=== PATIENT | female | born 1940 | race Two or more races ===

== ENCOUNTER 2021-12-27 11:54 | Emergency (ER) | payer OTHER ==
[~2021-12-27] VITALS: Ht 157.5 cm; Wt 73.5 kg
[~2021-12-27 11:54] MED LIST: ADVAIR 2501 DISK W/1 IH; AVELOX ABC PAC400 MG PO; DICLOFENAC SODI50 MG PO; FORADIL12 MCG IH; LASIX20 MG PO; MACROBID 100 M100 MG PO; METOCLOPRAMIDE10 MG PO; NEURONTIN250 MG/5 M PO; ORPH100T PO; PREDNISONE10 MG PO; PREVACID30 MG; PROVENTIL3 ML/2.5 M IH; SINGULAIR10 MG PO; ULTRACET PO; ZANTAC300 MG
== END 2021-12-27 18:19 | disposition home or self-care (01) ==
LOC: ER 11:54
DX: J44.1 Chronic obstructive pulmonary disease with (acute) exacerbation (principal); J45.909 Unspecified asthma, uncomplicated; Z91.041 Radiographic dye allergy status; Z20.822 Contact with and (suspected) exposure to COVID-19

== ENCOUNTER 2022-01-23 13:17 | Outpatient (CLI) | payer OTHER | END 2022-01-23 13:18 | disposition home or self-care (01) | LOC: LAB 13:17 | DX: J11.1 Influenza due to unidentified influenza virus with other respiratory manifestations (principal); A49.3 Mycoplasma infection, unspecified site; Z20.822 Contact with and (suspected) exposure to COVID-19; J44.9 Chronic obstructive pulmonary disease, unspecified ==

== ENCOUNTER 2022-01-28 08:47 | Emergency (ER) | payer OTHER ==
[~2022-01-28] VITALS: Ht 152.4 cm; Wt 53.5 kg
== END 2022-01-28 12:09 | disposition home or self-care (01) ==
LOC: ER 08:47
DX: T88.7XXA Unspecified adverse effect of drug or medicament, initial encounter (principal); K52.9 Noninfective gastroenteritis and colitis, unspecified; J44.9 Chronic obstructive pulmonary disease, unspecified; Z91.041 Radiographic dye allergy status

== ENCOUNTER 2022-03-07 11:09 | Emergency (ER) | payer OTHER ==
[~2022-03-07] VITALS: Ht 147.3 cm; Wt 48.5 kg
== END 2022-03-07 17:46 | disposition home or self-care (01) ==
LOC: ER 11:09
DX: S80.01XA Contusion of right knee, initial encounter (principal); W18.39XA Other fall on same level, initial encounter; Y93.9 Activity, unspecified; Y92.009 Unspecified place in unspecified non-institutional (private) residence as the place of occurrence of the external cause; Y99.9 Unspecified external cause status; I10 Essential (primary) hypertension; Z91.041 Radiographic dye allergy status